=== PATIENT | female | born 1985 | race Two or more races ===

== ENCOUNTER 2019-08-25 23:24 | Emergency (ER) | payer OTHER ==
[~2019-08-25] VITALS: Ht 167.6 cm; Wt 99.8 kg
[2019-08-26] MEDS ORDERED: ZYRTEC10 M3
== END 2019-08-26 01:49 | disposition left against medical advice (07) ==
LOC: ER 23:24
DX: Z53.20 Procedure and treatment not carried out because of patient's decision for unspecified reasons (principal)